=== PATIENT | female | born 1950 | race Caucasian/White ===

== ENCOUNTER 2016-08-02 21:08 | Emergency (ER) | payer OTHER ==
[~2016-08-02] VITALS: Ht 154.9 cm; Wt 59.0 kg
[~2016-08-02 21:08] MED LIST: ALEN35TA23 PO; ASPI-664 PO; ATEN-51 PO; CALC1TAB PO; HYDR25TA6 PO; LATA2.5D2 BOTH EYES; MELO-216 PO; OMEP20CA16 PO; [UNRECOGNIZED DRUG - CODE] PO
[2016-08-02 21:37] VITALS: Ht 154.9 cm; Wt 59.0 kg
--- NOTE | 2016-08-03 00:14 | ERA ---
ER Documentation Chief Complaint Date/Time DATE: 08/03/16 TIME: 00:14 Chief Complaint Hypertension. HPI The patient is a 65-year-old female, presenting to the ER because of left blood pressure at home at 160/103 around 8 PM. She is currently taking atenolol and hydrochlorothiazide. She saw her physician 2 days ago who prescribed her clonidine as needed. She denies headache, syncope, near syncope, neck pain, chest pain, dyspnea, abdominal pain, vomiting, dysuria, diarrhea she does not smoke, drink, has a lot of stress in her life Past medical history: Hypertension, osteoporosis Past surgical history: Cholecystectomy, appendectomy ROS All systems reviewed and are negative except as per history of present illness. Medications Home Meds Active Scripts Omeprazole* (Omeprazole*) 20 Mg Capsule., 20 MG PO DAILY, #30 CAP Prov:BRI PUGH MD 02/17/16 Reported Medications Multivit/Iron/FA/K/Herb No.244 (Alive Women's Energy Mv Tablet) 1 Each Tablet, 1 EACH PO DAILY, TAB 02/15/16 Latanoprost (Latanoprost) 2.5 Ml Drops, 1 DROP BOTH EYES QHS, #1 BOTTLE 02/15/16 Calcium Carbonate/Vitamin D3 (Calcium 600 + Vit D 400 Tablet) 1 Each Tablet, 2 EACH PO BID, TAB 02/15/16 Alendronate Sodium* (Alendronate Sodium*) 35 Mg Tablet, 35 MG PO Q7D, #4 TAB 02/15/16 Meloxicam (Mobic) 7.5 Mg Tablet, 7.5 MG PO DAILY, #30 TAB 02/15/16 Aspirin (Aspirin) 81 Mg Tablet., 81 MG PO DAILY 07/17/13 Hydrochlorothiazide (Hydrochlorothiazide) 25 Mg Tablet, 25 MG PO DAILY 07/17/13 Atenolol* (Atenolol*) 25 Mg Tablet, 25 MG PO DAILY 07/17/13 Omeprazole* (Omeprazole*) 20 Mg Capsule.dr, 20 MG PO DAILY 07/17/13 Allergies Allergies: Coded Allergies: No Known Allergy (Unverified , 02/15/16) PMhx/Soc History of Surgery: Yes Anesthesia Reaction: No Hx Neurological Disorder: No Hx Respiratory Disorders: No Hx Cardiac Disorders: Yes Hx Psychiatric Problems: No Hx Miscellaneous Medical Probl: No Hx Alcohol Use: No Hx Substance Use: No Hx Tobacco Use: No Physical Exam Vitals Vital Signs Date Time Temp Pulse Resp B/P Pulse Ox O2 Delivery O2 Flow Rate FiO2 08/03/16 01:40 98.1 65 18 140/60 99 Room Air 08/03/16 00:18 97.8 65 18 167/73 98 Room Air 08/02/16 21:37 98.8 72 20 178/74 98 Physical Exam Const: No acute distress. Very anxious Head: Atraumatic. Eyes: Normal Conjunctiva. ENT: Normal External Ears, Nose and Mouth. Neck: Full range of motion. No meningismus. Resp: Clear to auscultation bilaterally. Cardio: Regular rate and rhythm, no murmurs. Abd: Soft, non distended, normal bowel sounds, non tender. Skin: No petechiae or rashes. Back: No midline or flank tenderness. Ext: No cyanosis, or edema. Neur: Awake and alert. No focal deficit Psych: Normal Mood and Affect. Result Diagram: 08/03/16 0025 08/03/16 0025 Results 24 hrs Laboratory Tests Test 08/03/16 00:25 White Blood Count 7.810^3/ul Red Blood Count 4.3310^6/ul Hemoglobin 13.2g/dl Hematocrit 38.2% Mean Corpuscular Volume 88.2fl Mean Corpuscular Hemoglobin 30.5pg Mean Corpuscular Hemoglobin Concent 34.6g/dl Red Cell Distribution Width 13.4% Platelet Count 31645^3/UL Mean Platelet Volume 9.7fl Neutrophils % 48.4% Lymphocytes % 40.5% Monocytes % 7.7% Eosinophils % 2.6% Basophils % 0.5% Nucleated Red Blood Cells % 0.0/100WBC Neutrophils # 3.810^3/ul Lymphocytes # 3.110^3/ul Monocytes # 0.610^3/ul Eosinophils # 0.210^3/ul Basophils # 0.010^3/ul Nucleated Red Blood Cells # 0.010^3/ul Sodium Level 135mmol/L Potassium Level 3.7mmol/L Chloride Level 100mmol/L Carbon Dioxide Level 28mmol/L Anion Gap 11 Blood Urea Nitrogen 26mg/dl Creatinine 0.53mg/dl Glucose Level 110mg/dl Calcium Level 9.4mg/dl Procedures/MDM MEDICAL MAKING DECISION: The patient is a 65-year-old female, presenting to the ER because of acute accelerated hypertension. Her blood pressure improved in the ER without intervention. The differential diagnoses considered include but are not limited to acute distress, acute anxiety attack, acute panic attack, medical noncompliance, inadequate medication Departure Diagnosis: Primary Impression: Hypertension Condition: Good Comments I discussed the findings with the patient. I advised the patient to follow-up with the primary physician in about 1-2 days, sooner if needed and return if any concern. KATIE FUENTES MD Aug 03, 2016 00:14
[2016-08-03 00:45] LABS: ADD SCAN DIFF NO
[2016-08-03 00:48] LABS: BASOPHILS % 0.5 % (0.0-2.0); EOSINOPHILS # 0.2 10^3/ul (0.0-0.5); EOSINOPHILS % 2.6 % (0.0-7.0); HEMATOCRIT 38.2 % (37.0-47.0); HEMOGLOBIN 13.2 g/dl (12.0-16.0); LYMPHOCYTES # 3.1 10^3/ul (0.8-2.9); LYMPHOCYTES % 40.5 % (15.0-51.0); MEAN CORPUSCULAR HEMOGLOBIN 30.5 pg (29.0-33.0); MEAN CORPUSCULAR HGB CONC 34.6 g/dl (32.0-37.0); MEAN CORPUSCULAR VOLUME 88.2 fl (82.0-101.0); MEAN PLATELET VOLUME 9.7 fl (7.4-10.4); MONOCYTE # 0.6 10^3/ul (0.3-0.9); MONOCYTES % 7.7 % (0.0-11.0); NEUTROPHIL # 3.8 10^3/ul (1.6-7.5); NEUTROPHILS % 48.4 % (39.0-77.0); PLATELET COUNT 319 10^3/UL (140-415); RED BLOOD COUNT 4.33 10^6/ul (4.20-5.40); RED CELL DISTRIBUTION WIDTH 13.4 % (11.5-14.5); WHITE BLOOD COUNT 7.8 10^3/ul (4.8-10.8)
[2016-08-03 01:02] LABS: POTASSIUM 3.7 mmol/L (3.5-5.1)
[2016-08-03 01:04] LABS: CREATININE 0.53 mg/dl (0.44-1.00)
[2016-08-03 01:05] LABS: CALCIUM 9.4 mg/dl (8.4-10.2)
[2016-08-03 01:40] VITALS: BP 140/60; PULSE 65; RESP 18; TEMP 98.1
== END 2016-08-03 02:42 | disposition home or self-care (01) ==
LOC: E/R 21:08
DX: I10 Essential (primary) hypertension (principal); Z79.82 Long term (current) use of aspirin
CPT/HCPCS: 80048; 85025; 99283

== ENCOUNTER 2016-08-10 05:57 | Emergency (ER) | payer OTHER ==
[~2016-08-10] VITALS: Ht 154.9 cm; Wt 60.0 kg
[2016-08-10 06:20] VITALS: Ht 154.9 cm; Wt 60.0 kg
[2016-08-10 07:37] LABS: ADD SCAN DIFF NO
[2016-08-10 07:59] LABS: CHLORIDE 102 mmol/L (97-110); INR 0.9; POTASSIUM 4.1 mmol/L (3.5-5.1); PROTIME 12.1 Sec (12.2-14.2); PT RATIO 0.9; SODIUM 140 mmol/L (135-144)
[2016-08-10 08:00] LABS: PARTIAL THROMBOPLASTIN TIME 28.6 Sec (25.0-35.0)
[2016-08-10 08:02] LABS: ANION GAP 17 (8-16); BLOOD UREA NITROGEN 22 mg/dl (7-20); CARBON DIOXIDE 25 mmol/L (21-31); CREATININE 0.49 mg/dl (0.44-1.00); GLUCOSE 103 mg/dl (70-220)
[2016-08-10 08:03] LABS: CALCIUM 9.3 mg/dl (8.4-10.2)
--- NOTE | 2016-08-10 08:12 | RADRPT ---
PROCEDURE: XR Chest. CLINICAL INDICATION: Chest pain. TECHNIQUE: Single frontal portable chest was obtained. COMPARISON: 02/15/2016. FINDINGS: Cardiomediastinal silhouette appears normal There are atherosclerotic calcifications in the thoracic aorta. Pulmonary vasculature appears normal. Lung reyes appear clear. Costophrenic angles are well defined. The osseous elements appear intact. IMPRESSION: 1. Atherosclerotic calcifications in the thoracic aorta. 2. No evidence for active cardiopulmonary disease. RPTAT: [facility] Physician Mimi Date Time Electronically viewed and signed by Walter Dunaway Physician on 08/10/2016 08:12 /
[2016-08-10 08:15] LABS: TROPONIN-I < 0.012 ng/ml (0.00-0.12)
[2016-08-10 08:31] LABS: BASOPHILS % 0.5 % (0.0-2.0); EOSINOPHILS # 0.2 10^3/ul (0.0-0.5); EOSINOPHILS % 2.9 % (0.0-7.0); HEMATOCRIT 37.3 % (37.0-47.0); HEMOGLOBIN 12.6 g/dl (12.0-16.0); LYMPHOCYTES # 2.6 10^3/ul (0.8-2.9); LYMPHOCYTES % 33.9 % (15.0-51.0); MEAN CORPUSCULAR HEMOGLOBIN 30.1 pg (29.0-33.0); MEAN CORPUSCULAR HGB CONC 33.8 g/dl (32.0-37.0); MEAN PLATELET VOLUME 10.2 fl (7.4-10.4); MONOCYTE # 0.5 10^3/ul (0.3-0.9); MONOCYTES % 6.3 % (0.0-11.0); NEUTROPHIL # 4.3 10^3/ul (1.6-7.5); NEUTROPHILS % 56.3 % (39.0-77.0); PLATELET COUNT 289 10^3/UL (140-415); RED BLOOD COUNT 4.19 10^6/ul (4.20-5.40); RED CELL DISTRIBUTION WIDTH 13.5 % (11.5-14.5); WHITE BLOOD COUNT 7.6 10^3/ul (4.8-10.8)
--- NOTE | 2016-08-10 08:45 | ERD ---
ER Documentation Chief Complaint Date/Time DATE: 08/10/16 TIME: 08:41 Chief Complaint HTN, L arm numbness/Pain HPI This is a 65-year-old female who presents to the emergency room for evaluation of high blood pressure. The patient states that she does have a history of high blood pressure and does take blood pressure medications at home. She states that she woke up at 4 AM to take her blood pressure for an unknown reason , and noted that it was high. She states after she is always high she began to become anxious and did note mild chest pain. The patient states that she did have tingling in the left and right upper extremity when she became anxious and she came to the ER for further evaluation. She denies any active chest pain at this time. Her numbness and tingling has resolved. ROS All systems reviewed and are negative except as per history of present illness. Medications Home Meds Active Scripts Omeprazole* (Omeprazole*) 20 Mg Capsule., 20 MG PO DAILY, #30 CAP Prov:BRI PUGH MD 02/17/16 Reported Medications Multivit/Iron/FA/K/Herb No.244 (Alive Women's Energy Mv Tablet) 1 Each Tablet, 1 EACH PO DAILY, TAB 02/15/16 Latanoprost (Latanoprost) 2.5 Ml Drops, 1 DROP BOTH EYES QHS, #1 BOTTLE 02/15/16 Calcium Carbonate/Vitamin D3 (Calcium 600 + Vit D 400 Tablet) 1 Each Tablet, 2 EACH PO BID, TAB 02/15/16 Alendronate Sodium* (Alendronate Sodium*) 35 Mg Tablet, 35 MG PO Q7D, #4 TAB 02/15/16 Meloxicam (Mobic) 7.5 Mg Tablet, 7.5 MG PO DAILY, #30 TAB 02/15/16 Aspirin (Aspirin) 81 Mg Tablet., 81 MG PO DAILY 07/17/13 Hydrochlorothiazide (Hydrochlorothiazide) 25 Mg Tablet, 25 MG PO DAILY 07/17/13 Atenolol* (Atenolol*) 25 Mg Tablet, 25 MG PO DAILY 07/17/13 Omeprazole* (Omeprazole*) 20 Mg Capsule., 20 MG PO DAILY 07/17/13 Allergies Allergies: Coded Allergies: No Known Allergy (Unverified , 02/15/16) PMhx/Soc History of Surgery: Yes (CHOLECYSTECTOMY) Anesthesia Reaction: No Hx Neurological Disorder: No Hx Respiratory Disorders: No Hx Cardiac Disorders: Yes (HTN) Hx Psychiatric Problems: No Hx Miscellaneous Medical Probl: No Hx Alcohol Use: No Hx Substance Use: No Hx Tobacco Use: No Smoking Status: Never smoker Physical Exam Vitals Vital Signs Date Time Temp Pulse Resp B/P Pulse Ox O2 Delivery O2 Flow Rate FiO2 08/10/16 08:15 60 18 129/69 99 Room Air 08/10/16 06:20 97.6 68 20 164/78 100 Physical Exam INITIAL VITAL SIGNS: Reviewed by me GENERAL: The patient is well developed and appropriate for usual state of health in no apparent distress HEENT: Pupils equal, round, and reactive to light. EOMI. There is no scleral icterus. NECK: C-spine is soft and supple, there is no meningismus. There is no cervical lymphadenopathy. LUNGS: Clear to auscultation bilaterally. There are no rales, wheezes or rhonchi. HEART: Regular rate and rhythm, no murmurs, clicks, rubs or gallops. ABDOMEN: Soft, non-tender, non-distended. There are bowel sounds in all four quadrants. No rebound or guarding. EXTREMITIES: There is no peripheral cyanosis or edema. No focal swelling or erythema. NEUROLOGICAL: The patient moves all four extremities with 5/5 strength. Cranial nerves II - XII are intact. Normal gait. Alert and oriented SKIN: There is no apparent rash or petechiae. HEME/LYMPHATIC: There is no evidence of excessive bruising or lymphedema. PSYCHIATRIC: The patient does appear mildly anxious Result Diagram: 08/10/16 0720 08/10/16 0720 Results 24 hrs Laboratory Tests Test 08/10/16 07:20 White Blood Count 7.610^3/ul Red Blood Count 4.1910^6/ul Hemoglobin 12.6g/dl Hematocrit 37.3% Mean Corpuscular Volume 89.0fl Mean Corpuscular Hemoglobin 30.1pg Mean Corpuscular Hemoglobin Concent 33.8g/dl Red Cell Distribution Width 13.5% Platelet Count 94217^3/UL Mean Platelet Volume 10.2fl Neutrophils % 56.3% Lymphocytes % 33.9% Monocytes % 6.3% Eosinophils % 2.9% Basophils % 0.5% Nucleated Red Blood Cells % 0.0/100WBC Neutrophils # 4.310^3/ul Lymphocytes # 2.610^3/ul Monocytes # 0.510^3/ul Eosinophils # 0.210^3/ul Basophils # 0.010^3/ul Nucleated Red Blood Cells # 0.010^3/ul Prothrombin Time 12.1Sec Prothrombin Time Ratio 0.9 INR International Normalized Ratio 0.90 Activated Partial Thromboplast Time 28.6Sec Sodium Level 140mmol/L Potassium Level 4.1mmol/L Chloride Level 102mmol/L Carbon Dioxide Level 25mmol/L Anion Gap 17 Blood Urea Nitrogen 22mg/dl Creatinine 0.49mg/dl Glucose Level 103mg/dl Calcium Level 9.3mg/dl Troponin I < 0.012ng/ml Procedures/MDM EKG: Rate/Rhythm: [Normal Sinus Rhythm] QRS, ST, T-waves: [No changes consistent w/ acute ischemia] Impression: [No evidence of ischemia or arrhythmia] Chest X-ray 1V Interpreted by me: Soft Tissue: No acute abnormalities Bones: No acute abnormalities Mediastinum/Cardiac Silhouette/Lungs: [No acute abnormalities] This 65-year-old female presents to the emergency room for evaluation of hypertension, and mild chest pain which is resolved. The patient was also complaining of left arm and right arm numbness and tingling. When I evaluated this patient she appeared to be mildly anxious. Her blood pressure was slightly elevated with a systolic of 166. This patient did have lab work drawn including a troponin which was normal. Her EKG is nonischemic. Chest x-ray is also clear. This patient does have a stress test done less than a year ago which was essentially normal. When I reevaluated this patient to update her on the lab results she stated that she is feeling much better at this time. Her blood pressure is 133/61. I do feel that her symptoms could be related to anxiety. The patient will be discharged at this time with instructions to follow-up with her primary care physician or return to the ER if her symptoms worsen. Differential diagnoses entertained was broad with potential high acuity. Patient has been evaluated for acute myocardial infarction, unstable angina, aortic dissection, pulmonary embolism, other intrathoracic and cardiac concerns. Ultimately the patient's evaluation is nondiagnostic. Based on the patient's lack of risk factors, as well as the patient's clinical, laboratory, and imaging data, the patient appears to be low risk for these high risk causes of chest pain. Departure Diagnosis: Primary Impression: Hypertension Additional Impressions: Chest pain Paresthesias Condition: Stable LEORA DOMINUGEZ DO Aug 10, 2016 08:45
[2016-08-10 09:01] VITALS: BP 133/76; PULSE 62; RESP 18; TEMP 97.8
== END 2016-08-10 09:02 | disposition home or self-care (01) ==
LOC: E/R 05:57
DX: I10 Essential (primary) hypertension (principal); R40.2252 Coma scale, best verbal response, oriented, at arrival to emergency department; R20.2 Paresthesia of skin; R40.2142 Coma scale, eyes open, spontaneous, at arrival to emergency department; R40.2362 Coma scale, best motor response, obeys commands, at arrival to emergency department; Z79.82 Long term (current) use of aspirin
CPT/HCPCS: 36415; 71010; 80048; 84484; 85025; 85610; 85730; 93005; Z7502

== ENCOUNTER 2017-03-07 10:20 | Observation (INO) | END 2017-03-07 14:53 | disposition home or self-care (01) ==

== ENCOUNTER 2017-03-08 12:03 | Emergency (ER) | payer MEDICARE, OTHER ==
[~2017-03-08] VITALS: Wt 58.8 kg
[~2017-03-08 12:03] MED LIST changes: -ALEN35TA23 PO; -MELO-216 PO
[2017-03-08] MEDS ORDERED: SOD CHLORIDE 0.9% 1,000 ML IV STA (13:59)
[2017-03-08] MEDS ORDERED: ONDANSETRON 4 MG INJ IV STA (13:59)
[2017-03-08] MEDS ORDERED: morphine 4 MG/ML VIAL IV STA (13:59)
--- NOTE | 2017-03-08 15:13 | RADRPT ---
PROCEDURE: CT SCAN OF THE ABDOMEN AND PELVIS NON CONTRAST CLINICAL INDICATION: Abdominal pain, cold sweats TECHNIQUE: Utilizing the multi-slice spiral CT scanner, Transaxial images were obtained through the abdomen and pelvis without contrast. Additional sagittal, coronal, MPR images were also obtained. Radiation Dose: CTDI vol 7.69 mGy, DLP 425.32 mGy-cm. One of more of the following dose reduction techniques were utilized: -automatic exposure control -adjustment of the mA and/or kV according to patient size -Use of iterative reconstruction technique Contrast used: None COMPARISON: None FINDINGS: Limited slices through the lung bases are clear. Descending aorta measures 2.8 cm. Minimal osteophyt ic spurring noted in the lower dorsal spine. Small retrocardiac hiatal hernia noted. CT Abdomen Enlarged fatty liver, normal spleen, nondistended stomach, cholecystectomy clips, normal adrenals, p ancreas is seen. Kidneys do not demonstrate any intra renal stones or hydronephrosis. Dilated small bowel loops noted in the upper abdomen with the no significant mass lesions seen to suggest obstruct gilda etiology. significant diverticula seen in the right colon. No free air or ascites noted. No retr operitoneal adenopathy seen. No fluid collections noted in the lesser sac. CT pelvis : Diverticula also noted in the descending colon. Extensive diverticula noted in the rect osigmoid colon with the no pericolonic fat stranding noted to suggest acute diverticulitis. Uterus w ith calcifications, left adnexal cystic lesion with calcifications are seen, probably ovarian in jay ology. No pelvic ascites noted. Degenerate changes noted in the lumbosacral spine. IMPRESSION: Diverticulosis colon most extensive in the sigmoid colon. No CT evidence of acute diverticulitis not ed. A few dilated small bowel loops noted in the upper abdomen but no transition point seen to suggest o bstructive etiology. RPTAT: [facility] Physician Astrid Date Time Electronically viewed and signed by Physician Astrid on 03/08/2017 15:13 MB/
[2017-03-08] MEDS ORDERED: NAPR-685 PO (19:44)
[2017-03-08] MEDS ORDERED: POLY17PO6 PO (19:44)
--- NOTE | 2017-03-08 19:53 | ERD ---
ER Documentation Chief Complaint Chief Complaint ABD PAIN SINCE YESTERDAY AFTERNOON HPI This 66-year-old presents with abdominal pain that began earlier this afternoon. The pain is mild to moderate, intermittent crampy pain. States that she is sometimes constipated. She does have a history of hypertension hypercholesterolemia. Denies nausea vomiting shortness of breath fever chills and chest pain. She has a remote history of a cholecystectomy and an appendectomy. ROS All systems reviewed and are negative except as per history of present illness. Medications Home Meds Active Scripts Polyethylene Glycol* (Miralax*) 17 Gm Powd.pack, 17 GM PO DAILY for CONSTIPATION , #12 PACKET Prov:EDEN FRANCO DO 03/08/17 Naproxen* (Naproxen*) 375 Mg Tablet, 375 MG PO BID Y for PAIN, #20 TAB Prov:EDEN FRANCO DO 03/08/17 Omeprazole* (Omeprazole*) 20 Mg Capsule., 20 MG PO DAILY, #30 CAP Prov:BRI PUGH MD 02/17/16 Reported Medications Multivit/Iron/FA/K/Herb No.244 (Alive Women's Energy Mv Tablet) 1 Each Tablet, 1 EACH PO DAILY, TAB 02/15/16 Latanoprost (Latanoprost) 2.5 Ml Drops, 1 DROP BOTH EYES QHS, #1 BOTTLE 02/15/16 Calcium Carbonate/Vitamin D3 (Calcium 600 + Vit D 400 Tablet) 1 Each Tablet, 2 EACH PO BID, TAB 02/15/16 Aspirin (Aspirin) 81 Mg Tablet., 81 MG PO DAILY 07/17/13 Hydrochlorothiazide (Hydrochlorothiazide) 25 Mg Tablet, 25 MG PO DAILY 07/17/13 Atenolol* (Atenolol*) 25 Mg Tablet, 25 MG PO DAILY 07/17/13 Omeprazole* (Omeprazole*) 20 Mg Capsule., 20 MG PO DAILY 07/17/13 Discontinued Reported Medications Alendronate Sodium* (Alendronate Sodium*) 35 Mg Tablet, 35 MG PO Q7D, #4 TAB 02/15/16 Meloxicam (Mobic) 7.5 Mg Tablet, 7.5 MG PO DAILY, #30 TAB 02/15/16 Allergies Allergies: Coded Allergies: No Known Allergy (Unverified , 03/08/17) PMhx/Soc History of Surgery: Yes (JUNE AND APPY) Anesthesia Reaction: No Hx Neurological Disorder: No Hx Respiratory Disorders: No Hx Cardiac Disorders: Yes (HTN) Hx Psychiatric Problems: No Hx Miscellaneous Medical Probl: No Hx Alcohol Use: No Hx Substance Use: No Hx Tobacco Use: No Smoking Status: Never smoker Physical Exam Vitals Vital Signs Date Time Temp Pulse Resp B/P Pulse Ox O2 Delivery O2 Flow Rate FiO2 03/08/17 18:00 98.0 61 18 151/70 99 Room Air 03/08/17 15:54 97.9 69 18 144/65 98 Room Air 03/08/17 14:00 98.0 64 18 131/60 98 Room Air 03/08/17 12:06 98.0 78 18 108/58 99 Physical Exam Const: [] No distress Head: Atraumatic Eyes: Normal Conjunctiva ENT: Normal External Ears, Nose and Mouth. Neck: Full range of motion..~ No meningismus. Resp: Clear to auscultation bilaterally Cardio: Regular rate and rhythm, no murmurs Abd: Soft, non tender, non distended. Normal bowel sounds Skin: No petechiae or rashes Back: No midline or flank tenderness Ext: No cyanosis, or edema Neur: Awake and alert 3, no focal deficits Psych: Normal Mood and Affect Result Diagram: 03/08/17 1433 03/08/17 1433 Results 24 hrs Laboratory Tests Test 03/08/17 14:30 03/08/17 14:32 03/08/17 14:33 Urine Color YELLOW Urine Clarity CLEAR Urine pH 5.0 Urine Specific [place] 1.030 Urine Ketones NEGATIVEmg/dL Urine Nitrite NEGATIVEmg/dL Urine Bilirubin NEGATIVEmg/dL Urine Urobilinogen NEGATIVEmg/dL Urine Leukocyte Esterase NEGATIVELeu/ul Urine Hemoglobin NEGATIVEmg/dL Urine Glucose NEGATIVEmg/dL Urine Total Protein NEGATIVEmg/dl Lactic Acid Level 1.7mmol/L White Blood Count 10.810^3/ul Red Blood Count 4.3910^6/ul Hemoglobin 12.9g/dl Hematocrit 39.1% Mean Corpuscular Volume 89.1fl Mean Corpuscular Hemoglobin 29.4pg Mean Corpuscular Hemoglobin Concent 33.0g/dl Red Cell Distribution Width 13.8% Platelet Count 12749^3/UL Mean Platelet Volume 9.5fl Neutrophils % 82.3% Lymphocytes % 13.4% Monocytes % 3.6% Eosinophils % 0.2% Basophils % 0.2% Nucleated Red Blood Cells % 0.0/100WBC Neutrophils # 8.910^3/ul Lymphocytes # 1.510^3/ul Monocytes # 0.410^3/ul Eosinophils # 0.010^3/ul Basophils # 0.010^3/ul Nucleated Red Blood Cells # 0.010^3/ul Sodium Level 141mmol/L Potassium Level 4.3mmol/L Chloride Level 102mmol/L Carbon Dioxide Level 29mmol/L Anion Gap 14 Blood Urea Nitrogen 24mg/dl Creatinine 0.60mg/dl Glucose Level 106mg/dl Calcium Level 8.6mg/dl Total Bilirubin 0.7mg/dl Direct Bilirubin 0.00mg/dl Indirect Bilirubin 0.7mg/dl Aspartate Amino Transf (AST/SGOT) 33IU/L Alanine Aminotransferase (ALT/SGPT) 40IU/L Alkaline Phosphatase 108IU/L Troponin I < 0.012ng/ml Total Protein 8.0g/dl Albumin 4.3g/dl Globulin 3.70g/dl Albumin/Globulin Ratio 1.16 Lipase 72U/L Current Medications Medications (Trade) Dose Ordered Sig/[place] Route PRN Reason Start Time Stop Time Status Last Admin Dose Admin Sodium Chloride (NS) 1,000 ml @ 1,000 mls/hr Q1H STAT IV 03/08/17 13:59 03/08/17 14:58 DC 03/08/17 14:37 Morphine Sulfate (morphine) 4 mg ONCE STAT IV 03/08/17 13:59 03/08/17 14:01 DC Ondansetron HCl (Zofran Inj) 4 mg ONCE STAT IV 03/08/17 13:59 03/08/17 14:01 DC Procedures/MDM 66-year-old female with abdominal pain and nonspecific findings on imaging. No signs of acute infection. No signs of obstruction or surgical emergency currently. Patient was given 4 mg of morphine with Zofran. She is also given a liter of IV fluid. This helped with her pain. No obvious evidence of constipation on CAT scan of her patient says she is constipated from time to time. Workup with EKG and troponin were also performed and were negative for any acute ischemia. Going to discharge her with MiraLAX as well as naproxen and strict return precautions to the ER for any concerning changes. CT abdomen pelvis interpretation: See no acute process, see no obstruction, no free air, no abnormal fat stranding, no fractures EKG interpretation: Normal sinus rhythm rate of 61, left axis deviation, no ST or T-wave changes concerning for acute ischemia. Abnormal EKG Departure Diagnosis: Primary Impression: Abdominal pain Condition: Stable Patient Instructions: Abdominal Pain Referrals: DEISY MOSS MD (PCP) Additional Instructions: Call your primary care doctor TOMORROW for an appointment during the next 1-2 days.See the doctor sooner or return here if your condition worsens before your appointment time. EDEN FRANCO DO Mar 08, 2017 19:53
[2017-03-08 20:08] VITALS: BP 146/72; PULSE 71; RESP 19; TEMP 98
== END 2017-03-08 20:08 | disposition home or self-care (01) ==
LOC: E/R 12:03
DX: R10.9 Unspecified abdominal pain (principal); I10 Essential (primary) hypertension; Z79.82 Long term (current) use of aspirin
CPT/HCPCS: 36415; 74176; 80053; 81003; 83605; 83690; 84484; 85025; 93005; 99285; J7030; J2270; J2405

== ENCOUNTER 2017-06-25 05:48 | Observation (INO) | END 2017-06-25 16:45 | disposition home or self-care (01) ==

== ENCOUNTER → 2017-11-28 | Outpatient (CLI) | END | disposition home or self-care (01) ==

== ENCOUNTER 2018-08-24 23:56 | Inpatient (IN) | payer MEDICARE, OTHER ==
[~2018-08-24] VITALS: Ht 154.9 cm; Wt 63.4 kg
[~2018-08-24 23:56] MED LIST changes: +ASPI-1044 PO; -ASPI-664 PO; +CALC-834 PO; -CALC1TAB PO; +NAPR-685 PO; -OMEP20CA16 PO; +POLY17PO6 PO
[2018-08-25] MEDS ORDERED: SOD CHLORIDE 0.9% 500 ML IV STA (02:10)
[2018-08-25] MEDS ORDERED: ONDANSETRON 4 MG INJ IV STA (02:10)
[2018-08-25] MEDS ORDERED: morphine 4 MG/ML VIAL IV STA (02:10)
[2018-08-25] MEDS ORDERED: DIPHENHYDRAMINE 50 MG INJ IV ONE (02:30)
[2018-08-25] MEDS ORDERED: CLINDAMYCIN 600 MG/D5W (PMX) 50 ML IVPB SCH (04:00)
--- NOTE | 2018-08-25 04:43 | ERD ---
ER Documentation Chief Complaint Chief Complaint left foot pain/swelling x 4 days. s/p surgery HPI This 59-year-old female status post bunion surgery a few weeks ago. She had a few of the pins removed but now complains of erythema induration and pain. No fevers no chills. No nausea no vomiting. No other current complaint ROS All systems reviewed and are negative except as per history of present illness. Medications Home Meds Active Scripts Polyethylene Glycol* (Miralax*) 17 Gm Powd.pack, 17 GM PO DAILY for CONSTIPATION, #12 PACKET Prov:EDEN FRANCO DO 03/08/17 Naproxen* (Naproxen*) 375 Mg Tablet, 375 MG PO BID PRN for PAIN, #20 TAB Prov:EDEN FRANCO DO 03/08/17 Reported Medications Multivit/Iron/FA/K/Herb No.244 (Alive Women's Energy Mv Tablet) 1 Each Tablet, 1 EACH PO DAILY, TAB 02/15/16 Latanoprost (Latanoprost) 2.5 Ml Drops, 1 DROP BOTH EYES QHS, #1 BOTTLE 02/15/16 Calcium Carbonate/Vitamin D3 (Calcium 600 + Vit D 400 Tablet) 1 Each Tablet, 2 EACH PO BID, TAB 02/15/16 Aspirin Delayed Release (Aspirin Delayed Release) 81 Mg Tablet.dr, 81 MG PO DAILY 07/17/13 Hydrochlorothiazide (Hydrochlorothiazide) 25 Mg Tablet, 25 MG PO DAILY 07/17/13 Atenolol* (Atenolol*) 25 Mg Tablet, 25 MG PO DAILY 07/17/13 Allergies Allergies: Coded Allergies: Penicillins (Verified Allergy, Intermediate, total body redness/hives, 08/25/18) unsure which med caused reaction; given PCN, amocicillin, hydrocodone, Keflex at same time for dental procedure; reaction 1 day later cephalexin (Verified Allergy, Unknown, 08/25/18) unsure which med caused reaction; given PCN, amocicillin, hydrocodone, Keflex at same time for dental procedure; reaction 1 day later hydrocodone (Verified Allergy, Unknown, 08/25/18) unsure which med caused reaction; given PCN, amocicillin, hydrocodone, Keflex at same time for dental procedure; reaction 1 day later PMhx/Soc History of Surgery: Yes (pato/appy removed) Anesthesia Reaction: No Hx Neurological Disorder: No Hx Respiratory Disorders: No Hx Cardiac Disorders: Yes (HTN) Hx Psychiatric Problems: No Hx Miscellaneous Medical Probl: No Hx Alcohol Use: Yes (socially) Hx Substance Use: No Hx Tobacco Use: No Smoking Status: Current every day smoker Physical Exam Vitals Vital Signs Date Temp Pulse Resp B/P (MAP) Pulse Ox O2 O2 Flow FiO2 Time Delivery Rate 08/25/18 98.5 75 19 134/79 98 Room Air 02:07 (97) 08/25/18 98.5 89 18 144/66 98 00:10 (92) Physical Exam Const: No acute distress Head: Atraumatic Eyes: Normal Conjunctiva ENT: Normal External Ears, Nose and Mouth. Neck: Full range of motion. No meningismus. Resp: Clear to auscultation bilaterally Cardio: Regular rate and rhythm, no murmurs Abd: Soft, non tender, non distended. Normal bowel sounds Skin: Erythema and induration noted over the left foot. Back: No midline or flank tenderness Ext: No cyanosis, or edema Neur: Awake and alert Psych: Normal Mood and Affect Result Diagram: 08/25/1822308/25/18223 Results 24 hrs Laboratory Tests Test 08/25/18 02:24 White Blood Count 11.8 10^3/ul Red Blood Count 4.18 10^6/ul Hemoglobin 12.0 g/dl Hematocrit 36.2 % Mean Corpuscular Volume 86.6 fl Mean Corpuscular Hemoglobin 28.7 pg Mean Corpuscular Hemoglobin Concent 33.1 g/dl Red Cell Distribution Width 14.6 % Platelet Count 319 10^3/UL Mean Platelet Volume 9.6 fl Immature Granulocytes % 0.300 % Neutrophils % 59.9 % Lymphocytes % 29.6 % Monocytes % 6.9 % Eosinophils % 3.0 % Basophils % 0.3 % Nucleated Red Blood Cells % 0.0 /100WBC Immature Granulocytes # 0.040 10^3/ul Neutrophils # 7.1 10^3/ul Lymphocytes # 3.5 10^3/ul Monocytes # 0.8 10^3/ul Eosinophils # 0.4 10^3/ul Basophils # 0.0 10^3/ul Nucleated Red Blood Cells # 0.0 10^3/ul Prothrombin Time 12.3 Sec Prothrombin Time Ratio 1.0 INR International Normalized Ratio 0.90 Activated Partial Thromboplast Time 31.6 Sec Urine Color YELLOW Urine Clarity SLIGHTLY CLOUDY Urine pH 5.0 Urine Specific [place] 1.021 Urine Ketones TRACE mg/dL Urine Nitrite NEGATIVE mg/dL Urine Bilirubin NEGATIVE mg/dL Urine Urobilinogen 1+ mg/dL Urine Leukocyte Esterase TRACE Bryan/ul Urine Microscopic RBC 3 /HPF Urine Microscopic WBC 9 /HPF Urine Squamous Epithelial Cells FEW /HPF Urine Bacteria FEW /HPF Urine Mucus FEW /HPF Urine Hemoglobin 1+ mg/dL Urine Glucose NEGATIVE mg/dL Urine Total Protein NEGATIVE mg/dl Sodium Level 142 mmol/L Potassium Level 3.7 mmol/L Chloride Level 104 mmol/L Carbon Dioxide Level 27 mmol/L Anion Gap 11 Blood Urea Nitrogen 17 mg/dl Creatinine 0.51 mg/dl Est Glomerular Filtrat Rate mL/min > 60 mL/min Glucose Level 119 mg/dl Calcium Level 9.7 mg/dl Total Bilirubin 0.5 mg/dl Direct Bilirubin 0.00 mg/dl Indirect Bilirubin 0.5 mg/dl Aspartate Amino Transf (AST/SGOT) 29 IU/L Alanine Aminotransferase (ALT/SGPT) 24 IU/L Alkaline Phosphatase 130 IU/L Total Protein 8.5 g/dl Albumin 4.3 g/dl Globulin 4.20 g/dl Albumin/Globulin Ratio 1.02 Lipase 75 U/L Current Medications Medications Dose Sig/[place] Start Time Status Last (Trade) Ordered Route PRN Stop Time Admin Dose Reason Admin Sodium 500 ml @ Q1H STAT 08/25/18 DC 08/25/18 Chloride 500 mls/hr IV 02:10 02:56 08/25/18 03:09 Morphine 4 mg ONCE STAT 08/25/18 DC 08/25/18 Sulfate IV 02:10 02:57 (morphine) 08/25/18 02:11 Ondansetron 4 mg ONCE STAT 08/25/18 DC 08/25/18 HCl (Zofran IV 02:10 02:56 Inj) 08/25/18 02:11 25 mg ONCE ONCE 08/25/18 DC 08/25/18 Diphenhydrami IV 02:30 02:56 ne HCl 08/25/18 02:31 (Benadryl) Clindamycin 50 ml @ 50 ONCE IVPB 08/25/18 08/25/18 HCl/ mls/hr 04:00 04:31 Dextrose 08/25/18 04:59 Atenolol 25 mg DAILY PO 08/25/18 (Tenormin) 09:00 25 mg DAILY PO 08/25/18 Hydrochloroth 09:00 iazide (Hydrochlorot hiazide) Latanoprost 1 drop QHS BOTH 08/25/18 (Xalatan) EYES 21:00 17 gm DAILY PO 08/25/18 Polyethylene 09:00 Glycol (Miralax) 1 tab BID PO 08/25/18 Calcium/Vitam 09:00 in D (Oyster Shell/ Vit-D (500/200)) 1 tab DAILY PO 08/25/18 Multivitamins 09:00 / Minerals (Theragran-M) Procedures/MDM Medical decision making: Patient has what looks to be a postop cellulitis. Patient will need to be admitted for intravenous antibiotics. Dr. Linn made aware. Departure Diagnosis: Primary Impression: Cellulitis Site of cellulitis: unspecified site Qualified Codes: L03.90 - Cellulitis, unspecified Condition: Serious JIGNESH SANTANA Aug 25, 2018 04:43
[2018-08-25 05:39] VITALS: Ht 154.9 cm; Wt 63.4 kg
[2018-08-25 06:04] VITALS: BP 137/63; PULSE 72; RESP 18
--- NOTE | 2018-08-25 06:24 | HP ---
Date/Time of Note Date/Time of Note DATE: 08/25/18 TIME: 06:19 Assessment/Plan VTE Prophylaxis SCD applied (from Nsg): Yes Pharmacological prophylaxis: NA/contraindicated Pharm contraindication: low risk/ambulating Lines/Catheters IV Catheter Type (from Nrsg): Saline Lock Assessment/Plan Hospital Course This is a 67-year-old female being admitted to the [facility] floor for: #1 left lower extremity cellulitis: We will start the patient on vancomycin and aztreonam, as patient reports possible allergy to penicillin. Will obtain x- rays of the foot to further evaluate. Will check ESR and CRP. Patient does have mild elevation in her white blood cell count of 11,800. Will consult podiatry . Pain control. #2 hypertension: Continue HCTZ, atenolol #3 DVT GI prophylaxis: SCD to the right lower extremity, no GI prophylaxis indicated Further treatment strategy will be implemented as per clinical course Result Diagram: 08/25/184 08/25/18 0224 Results 24hrs Laboratory Tests Test 08/25/18 02:24 White Blood Count 11.8 #H Red Blood Count 4.18 L Hemoglobin 12.0 Hematocrit 36.2 L Mean Corpuscular Volume 86.6 Mean Corpuscular Hemoglobin 28.7 L Mean Corpuscular Hemoglobin Concent 33.1 Red Cell Distribution Width 14.6 H Platelet Count 319 Mean Platelet Volume 9.6 Immature Granulocytes % 0.300 Neutrophils % 59.9 Lymphocytes % 29.6 Monocytes % 6.9 Eosinophils % 3.0 Basophils % 0.3 Nucleated Red Blood Cells % 0.0 Immature Granulocytes # 0.040 H Neutrophils # 7.1 Lymphocytes # 3.5 H Monocytes # 0.8 Eosinophils # 0.4 Basophils # 0.0 Nucleated Red Blood Cells # 0.0 Prothrombin Time 12.3 Prothrombin Time Ratio 1.0 INR International Normalized Ratio 0.90 Activated Partial Thromboplast Time 31.6 Urine Color YELLOW Urine Clarity SLIGHTLY CLOUDY A Urine pH 5.0 Urine Specific [place] 1.021 Urine Ketones TRACE A Urine Nitrite NEGATIVE Urine Bilirubin NEGATIVE Urine Urobilinogen 1+ H Urine Leukocyte Esterase TRACE A Urine Microscopic RBC 3 Urine Microscopic WBC 9 H Urine Squamous Epithelial Cells FEW Urine Bacteria FEW A Urine Mucus FEW A Urine Hemoglobin 1+ H Urine Glucose NEGATIVE Urine Total Protein NEGATIVE Sodium Level 142 Potassium Level 3.7 Chloride Level 104 Carbon Dioxide Level 27 Anion Gap 11 Blood Urea Nitrogen 17 Creatinine 0.51 Est Glomerular Filtrat Rate mL/min > 60 Glucose Level 119 Calcium Level 9.7 Total Bilirubin 0.5 Direct Bilirubin 0.00 Indirect Bilirubin 0.5 Aspartate Amino Transf (AST/SGOT) 29 Alanine Aminotransferase (ALT/SGPT) 24 Alkaline Phosphatase 130 H C-Reactive Protein 20.5 H Total Protein 8.5 H Albumin 4.3 Globulin 4.20 H Albumin/Globulin Ratio 1.02 Lipase 75 HPI/ROS Admit Date/Time Admit Date/Time Aug 25, 2018 at 04:00 Hx of Present Illness Chief complaint: Left foot pain, redness This is a 67-year-old female with a past medical history of bunion surgery redness of her foot and pain in her fourth digit. Patient reports that she had surgery at [facility] on June 23 for bilateral bunion surgery/foot surgery. She states that she had pins placed in there. Some of the pins have been removed but some still exist. She states that she was scheduled for surgery at [facility] on . Due to the fact that she started exp eriencing swelling and redness of her left lateral foot and pain in her fourth digit of the left foot she came in for evaluation. Her vending machine technician is Dr. Rey. He denies any fevers. Allergies: Penicillin, cephalexin, hydrocodone (she took all of these and developed a rash but is unsure which one was the culprit as she took them together) Medications: See Jul Const: Negative for fever, chills, weight gain or weight loss, fatigue, or diaphoresis Eyes : No pain discharge or redness or change in visual acuity ENT: No pain, sore throat, congestion, congestion, dysphagia or discharge Respiratory: No shortness of breath, cough, sputum, wheezing, or pleuritic pain Cardiovascular: No chest pain, palpitation, PND, or edema GI : no change in appetite, abdominal pain, nausea, vomiting, diarrhea, constipation, or change in the color his stool Genitourinary: No dysuria, hematuria, flank pain , discharge or CVA tenderness Musculoskeletal: No joint pain, back pain, neck pain, restricted range of motion in neck or joints Skin: No rash, bruising or hives Neuro: No headache, dizziness, syncope, seizure, focal weakness Endocrine: No polyuria, polydipsia, temperature intolerance Psych: No hallucination, depression, anxiety or suicidal ideation PMH/Family/Social Past Medical History Hypertension Medications Current Medications Atenolol (Tenormin) 25 mg DAILY PO ; Start 08/25/18 at 09:00 Hydrochlorothiazide (Hydrochlorothiazide) 25 mg DAILY PO ; Start 08/25/18 at 09:00 Latanoprost (Xalatan) 1 drop QHS BOTH EYES ; Start 08/25/18 at 21:00 Polyethylene Glycol (Miralax) 17 gm DAILY PO ; Start 08/25/18 at 09:00 Calcium/Vitamin D (Oyster Shell/ Vit-D (500/200)) 1 tab BID PO ; Start 08/25/18 at 09:00 Multivitamins/ Minerals (Theragran-M) 1 tab DAILY PO ; Start 08/25/18 at 09:00 Coded Allergies: Penicillins (Verified Allergy, Intermediate, total body redness/hives, 08/25/18) unsure which med caused reaction; given PCN, amocicillin, hydrocodone, Keflex at same time for dental procedure; reaction 1 day later cephalexin (Verified Allergy, Unknown, 08/25/18) unsure which med caused reaction; given PCN, amocicillin, hydrocodone, Keflex at same time for dental procedure; reaction 1 day later hydrocodone (Verified Allergy, Unknown, 08/25/18) unsure which med caused reaction; given PCN, amocicillin, hydrocodone, Keflex at same time for dental procedure; reaction 1 day later Past Surgical History Cholecystectomy, right foot bunion surgery, left foot bunion surgery, second third and fourth digit surgery Family History Significant Family History: no pertinent family hx Social History Alcohol Use: none Smoking Status: Never smoker Drug Use: none Exam/Review of Systems Vital Signs Vitals Vital Signs Date Temp Pulse Resp B/P (MAP) Pulse Ox O2 O2 Flow FiO2 Time Delivery Rate 08/25/18 98.3 72 18 137/63 98 Room Air 06:04 (87) Exam Exam General: Patient is currently lying in bed in no acute distress HEENT: Atraumatic, normocephalic. The pupils are equal, round and reactive. Extraocular motor are intact Neck: Supple with full range of motion. No rigidity or meningismus Chest: Nontender Lungs: Clear to auscultation bilaterally no crackles rales or wheezing Heart: Normal S1-S2, Regular rhythm and rate. No murmur, S3, or S4 Abdomen: Soft , nontender, nondistended , bowel sounds are present. No guarding no rebound tenderness , No masses or organomegaly. No costovertebral temporal angle mass Extremities: Left foot swelling and redness of the lateral aspect Skin: Left foot swelling on the lateral aspect and erythema. Left fourth digit tenderness to palpation suture in place, second and third digit currently surgically wrapped. Neurologic: Normal mental status, speech normal, cranial nerves II through XII are intact, motor and sensory are intact, MALLIKA BERNSTEIN Aug 25, 2018 06:24
[2018-08-25] MEDS ORDERED: ACETAMINOPHEN 325 MG TAB PO PRN (06:30)
[2018-08-25] MEDS ORDERED: BISACODYL (EC) 5 MG TAB PO PRN (06:30)
[2018-08-25] MEDS ORDERED: OXYCODONE/ACETAMINOPHEN (5/325) TAB PO PRN (06:30)
[2018-08-25] MEDS ORDERED: NACL 0.9% 3 ML SYG IV SCH (06:30)
[2018-08-25] MEDS ORDERED: DOCUSATE SODIUM 100 MG CAP PO PRN (06:30)
[2018-08-25] MEDS ORDERED: ONDANSETRON 4 MG INJ IV PRN (06:30)
[2018-08-25] MEDS ORDERED: VANCOMYCIN IV PER PHARMACY XX SCH (06:30)
[2018-08-25 07:21] VITALS: BP 142/66; PULSE 72; RESP 16
[2018-08-25] MEDS ORDERED: AZTREONAM 1 GM/NS (PMX) 50 ML IVPB SCH (09:00)
[2018-08-25] MEDS ORDERED: HYDROCHLOROTHIAZIDE 25 MG TAB PO SCH (09:00)
[2018-08-25] MEDS ORDERED: CALCIUM/VITAMIN D (500/200) TAB PO SCH (09:00)
[2018-08-25] MEDS ORDERED: MULTIVITAMINS/MINERALS TAB PO SCH (09:00)
[2018-08-25] MEDS ORDERED: ATENOLOL 25 MG TAB PO SCH (09:00)
[2018-08-25] MEDS ORDERED: POLYETHYLENE GLYCOL 17 GM PACKET PO SCH (09:00)
[2018-08-25] MEDS ORDERED: VANCOMYCIN HCL 1.25 GM in SOD CHLORIDE 0.9% 250 ML IVPB SCH (09:00)
[2018-08-25 13:54] VITALS: BP 145/62; PULSE 64; RESP 16
--- NOTE | 2018-08-25 14:16 | PN ---
Date/Time of Note Date/Time of Note DATE: 08/25/18 TIME: 14:13 Assessment/Plan VTE Prophylaxis Risk score (from Ns)>0 risk: 5 SCD applied (from [facility]): Yes SCD contraindicated: low risk/ambulating Pharmacological prophylaxis: NA/contraindicated, LMWH Pharm contraindication: low risk/ambulating Lines/Catheters IV [facility]from [facility] Saline Lock Urinary Cath still in place: No Assessment/Plan Hospital Course A/P 1. Lt foot cellulitis, stable continue antibiotics. 2. Lt foot bunion surgery still wh hardware, stable consulted podiatry. 3. Glaucoma 4. Hypertension S: feels better less erythema. No fever or toxicity. O: Vss PE No pallor Regular Clear Benign Left foot with mild erythema, hardware noted Result Diagram: 08/25/1822308/25/18223 Results 24hrs Laboratory Tests Test 08/25/18 02:24 White Blood Count 11.8 #H Red Blood Count 4.18 L Hemoglobin 12.0 Hematocrit 36.2 L Mean Corpuscular Volume 86.6 Mean Corpuscular Hemoglobin 28.7 L Mean Corpuscular Hemoglobin Concent 33.1 Red Cell Distribution Width 14.6 H Platelet Count 319 Mean Platelet Volume 9.6 Immature Granulocytes % 0.300 Neutrophils % 59.9 Lymphocytes % 29.6 Monocytes % 6.9 Eosinophils % 3.0 Basophils % 0.3 Nucleated Red Blood Cells % 0.0 Immature Granulocytes # 0.040 H Neutrophils # 7.1 Lymphocytes # 3.5 H Monocytes # 0.8 Eosinophils # 0.4 Basophils # 0.0 Nucleated Red Blood Cells # 0.0 Erythrocyte Sedimentation Rate 54 H Prothrombin Time 12.3 Prothrombin Time Ratio 1.0 INR International Normalized Ratio 0.90 Activated Partial Thromboplast Time 31.6 Urine Color YELLOW Urine Clarity SLIGHTLY CLOUDY A Urine pH 5.0 Urine Specific [place] 1.021 Urine Ketones TRACE A Urine Nitrite NEGATIVE Urine Bilirubin NEGATIVE Urine Urobilinogen 1+ H Urine Leukocyte Esterase TRACE A Urine Microscopic RBC 3 Urine Microscopic WBC 9 H Urine Squamous Epithelial Cells FEW Urine Bacteria FEW A Urine Mucus FEW A Urine Hemoglobin 1+ H Urine Glucose NEGATIVE Urine Total Protein NEGATIVE Sodium Level 142 Potassium Level 3.7 Chloride Level 104 Carbon Dioxide Level 27 Anion Gap 11 Blood Urea Nitrogen 17 Creatinine 0.51 Est Glomerular Filtrat Rate mL/min > 60 Glucose Level 119 Calcium Level 9.7 Total Bilirubin 0.5 Direct Bilirubin 0.00 Indirect Bilirubin 0.5 Aspartate Amino Transf (AST/SGOT) 29 Alanine Aminotransferase (ALT/SGPT) 24 Alkaline Phosphatase 130 H C-Reactive Protein 20.5 H Total Protein 8.5 H Albumin 4.3 Globulin 4.20 H Albumin/Globulin Ratio 1.02 Lipase 75 Exam/Review of Systems Exam Vitals Vital Signs Date Temp Pulse Resp B/P (MAP) Pulse Ox O2 O2 Flow FiO2 Time Delivery Rate 08/25/18 98.5 64 16 145/62 99 13:54 (89) 08/25/18 Room Air 06:04 Results Results 24hrs Laboratory Tests Test 08/25/18 02:24 White Blood Count 11.8 #H Red Blood Count 4.18 L Hemoglobin 12.0 Hematocrit 36.2 L Mean Corpuscular Volume 86.6 Mean Corpuscular Hemoglobin 28.7 L Mean Corpuscular Hemoglobin Concent 33.1 Red Cell Distribution Width 14.6 H Platelet Count 319 Mean Platelet Volume 9.6 Immature Granulocytes % 0.300 Neutrophils % 59.9 Lymphocytes % 29.6 Monocytes % 6.9 Eosinophils % 3.0 Basophils % 0.3 Nucleated Red Blood Cells % 0.0 Immature Granulocytes # 0.040 H Neutrophils # 7.1 Lymphocytes # 3.5 H Monocytes # 0.8 Eosinophils # 0.4 Basophils # 0.0 Nucleated Red Blood Cells # 0.0 Erythrocyte Sedimentation Rate 54 H Prothrombin Time 12.3 Prothrombin Time Ratio 1.0 INR International Normalized Ratio 0.90 Activated Partial Thromboplast Time 31.6 Urine Color YELLOW Urine Clarity SLIGHTLY CLOUDY A Urine pH 5.0 Urine Specific [place] 1.021 Urine Ketones TRACE A Urine Nitrite NEGATIVE Urine Bilirubin NEGATIVE Urine Urobilinogen 1+ H Urine Leukocyte Esterase TRACE A Urine Microscopic RBC 3 Urine Microscopic WBC 9 H Urine Squamous Epithelial Cells FEW Urine Bacteria FEW A Urine Mucus FEW A Urine Hemoglobin 1+ H Urine Glucose NEGATIVE Urine Total Protein NEGATIVE Sodium Level 142 Potassium Level 3.7 Chloride Level 104 Carbon Dioxide Level 27 Anion Gap 11 Blood Urea Nitrogen 17 Creatinine 0.51 Est Glomerular Filtrat Rate mL/min > 60 Glucose Level 119 Calcium Level 9.7 Total Bilirubin 0.5 Direct Bilirubin 0.00 Indirect Bilirubin 0.5 Aspartate Amino Transf (AST/SGOT) 29 Alanine Aminotransferase (ALT/SGPT) 24 Alkaline Phosphatase 130 H C-Reactive Protein 20.5 H Total Protein 8.5 H Albumin 4.3 Globulin 4.20 H Albumin/Globulin Ratio 1.02 Lipase 75 Medications Medication Current Medications Atenolol (Tenormin) 25 mg DAILY PO Last administered on 08/25/18at 08:38; Admin Dose 25 MG; Start 08/25/18 at 09:00 Latanoprost (Xalatan) 1 drop QHS BOTH EYES ; Start 08/25/18 at 21:00 Polyethylene Glycol (Miralax) 17 gm DAILY PO ; Start 08/25/18 at 09:00 Calcium/Vitamin D (Oyster Shell/ Vit-D (500/200)) 1 tab BID PO Last administered on 08/25/18at 08:38; Admin Dose 1 TAB; Start 08/25/18 at 09:00 Multivitamins/ Minerals (Theragran-M) 1 tab DAILY PO Last administered on 08/25/18at 08:38; Admin Dose 1 TAB; Start 08/25/18 at 09:00 IV Flush (NS 3 ml) 3 ml PER PROTOCOL IV ; Start 08/25/18 at 06:30 Ondansetron HCl (Zofran Inj) 4 mg Q6H PRN IV NAUSEA/VOMITING; Start 08/25/18 at 06:30 Acetaminophen (Tylenol Tab) 650 mg Q6H PRN PO .PAIN 1-3 OR TEMP Last administered on 08/25/18at 07:56; Admin Dose 650 MG; Start 08/25/18 at 06:30 Oxycodone/ Acetaminophen (Percocet (5/ 325)) 1 tab Q6H PRN PO .MOD PAIN 4-6; Start 08/25/18 at 06:30 Docusate Sodium (Colace) 100 mg Q12H PRN PO .CONSTIPATION; Start 08/25/18 at 06:30 Bisacodyl (Dulcolax) 5 mg DAILY PRN PO .CONSTIPATION; Start 08/25/18 at 06:30 Vancomycin HCl (Vanco Iv Per Pharmacy) VANCOMYCIN PER PHARMACY PER PROTOCOL XX ; Start 08/25/18 at 06:30 Aztreonam 50 ml @ 100 mls/hr Q12 IVPB Last administered on 08/25/18at 09:28; Admin Dose 100 MLS/HR; Start 08/25/18 at 09:00 Vancomycin HCl 250 ml @ 125 mls/hr Q12H IVPB ; Start 08/25/18 at 22:00 Lactobacillus Acidophilus/ Rhamnosus (Culturelle) 1 cap BID PO ; Start 08/25/18 at 21:00 NAS MURPHY MD Aug 25, 2018 14:16
--- NOTE | 2018-08-25 15:58 | PDOCDIS ---
Discharge Instructions CONDITION [id number] Patient Condition: [id number] Stable HOME CARE INSTRUCTIONS: [id number] Diet Instructions: [id number] FOLLOW UP/APPOINTMENTS Follow-up Plan podiatry & PCP 1wk NAS MURPHY MD Aug 25, 2018 15:58
[2018-08-25] MEDS ORDERED: LACT1CAP28 PO (16:00)
[2018-08-25] MEDS ORDERED: SULF1TAB31 PO (16:00)
[2018-08-25] MEDS ORDERED: ACET325T33 PO (16:00)
[2018-08-25] MEDS ORDERED: LATANOPROST 0.005% 2.5 ML OPH BOTH EYES SCH (21:00)
[2018-08-25] MEDS ORDERED: LACTOBACILLUS RHAMNOSUS CAP PO SCH (21:00)
[2018-08-25] MEDS ORDERED: VANCOMYCIN 1 GM 250 ML IVPB SCH (22:00)
== END 2018-08-25 16:45 | disposition home or self-care (01) | DRG 603 ==
LOC: E/R 23:56 → 2NE 08-25 04:00
PROVIDERS: ADMIT Family Medicine; ATTEND Internal Medicine
DX: L03.116 Cellulitis of left lower limb (principal); H40.9 Unspecified glaucoma; I10 Essential (primary) hypertension; F17.200 Nicotine dependence, unspecified, uncomplicated; Z90.49 Acquired absence of other specified parts of digestive tract; Z88.0 Allergy status to penicillin; Z79.82 Long term (current) use of aspirin
CPT/HCPCS: 36415; 80053; 81001; 83690; 85025; 85610; 85651; 85730; 86140; 96374; 96375; J1200; J2270; J2405; J3370; J7040; J7050

== ENCOUNTER 2018-09-23 02:05 | Emergency (ER) | payer MEDICARE, OTHER ==
[~2018-09-23] VITALS: Wt 76.4 kg
[~2018-09-23 02:05] MED LIST changes: +ACET325T33 PO; +LACT1CAP28 PO; +SULF1TAB31 PO
[2018-09-23] MEDS ORDERED: hydrALAzine 20 MG INJ IV ONE (02:26)
[2018-09-23] MEDS ORDERED: hydrALAzine 20 MG INJ ONE (02:33)
[2018-09-23] MEDS ORDERED: morphine 4 MG/ML VIAL ONE (03:19)
[2018-09-23] MEDS ORDERED: ONDANSETRON 4 MG INJ ONE (03:19)
[2018-09-23] MEDS ORDERED: LORAZEPAM 0.5 MG TAB ONE (03:45)
[2018-09-23] MEDS ORDERED: LORAZEPAM 0.5 MG TAB PO ONE (04:00)
[2018-09-23] MEDS ORDERED: LORA-441 PO (04:32)
[2018-09-23 04:58] VITALS: BP 131/61; PULSE 90; RESP 20
--- NOTE | 2018-10-28 01:38 | ERD ---
ER Documentation Chief Complaint Chief Complaint bib self, cc: htn and anxiety HPI This is a 66 by myself complains of elevated blood pressure secondary to anxiety. She denies any fevers chills nausea vomiting. She denies any chest pain. She denies any headache. Denies any focal neurologic complaints. ROS All systems reviewed and are negative except as per history of present illness. Medications Home Meds Active Scripts Lorazepam* (Ativan*) 0.5 Mg Tablet, 0.5 MG PO Q8H PRN for ANXIETY, #10 TAB Prov:ERIC SANTANAEL Brian 09/23/18 Sulfamethoxazole/Trimethoprim* (Bactrim Ds* Tablet) 1 Each Tablet, 1 TAB PO BID for 10 Days, TAB Prov:NAS MURPHY MD 08/25/18 Lactobacillus Rhamnosus GG (Culturelle) 1 Each Capsule, 1 CAP PO BID for 14 Days, #30 CAP otc Prov:NAS MURPHY MD 08/25/18 Acetaminophen* (Tylenol*) 325 Mg Tablet, 650 MG PO Q6H PRN for .PAIN 1-3 OR TEMP for 10 Days, TAB Prov:NAS MURPHY MD 08/25/18 Polyethylene Glycol* (Miralax*) 17 Gm Powd.pack, 17 GM PO DAILY for CONSTIPATION, #12 PACKET Prov:EDEN FRANCO DO 03/08/17 Naproxen* (Naproxen*) 375 Mg Tablet, 375 MG PO BID PRN for PAIN, #20 TAB Prov:EDEN FRANCO DO 03/08/17 Reported Medications Multivit/Iron/FA/K/Herb No.244 (Alive Women[employer] Energy Mv Tablet) 1 Each Tablet, 1 EACH PO DAILY, TAB 02/15/16 Latanoprost (Latanoprost) 2.5 Ml Drops, 1 DROP BOTH EYES QHS, #1 BOTTLE 02/15/16 Calcium Carbonate/Vitamin D3 (Calcium 600 + Vit D 400 Tablet) 1 Each Tablet, 2 EACH PO BID, TAB 02/15/16 Aspirin Delayed Release (Aspirin Delayed Release) 81 Mg Tablet.dr, 81 MG PO DAILY 07/17/13 Hydrochlorothiazide (Hydrochlorothiazide) 25 Mg Tablet, 25 MG PO DAILY 07/17/13 Atenolol* (Atenolol*) 25 Mg Tablet, 25 MG PO DAILY 07/17/13 Allergies Allergies: Coded Allergies: Penicillins (Verified Allergy, Intermediate, total body redness/hives, 08/25/18) unsure which med caused reaction; given PCN, amocicillin, hydrocodone, Keflex at same time for dental procedure; reaction 1 day later cephalexin (Verified Allergy, Unknown, 08/25/18) unsure which med caused reaction; given PCN, amocicillin, hydrocodone, Keflex at same time for dental procedure; reaction 1 day later hydrocodone (Verified Allergy, Unknown, 08/25/18) unsure which med caused reaction; given PCN, amocicillin, hydrocodone, Keflex at same time for dental procedure; reaction 1 day later PMhx/Soc History of Surgery: Yes Anesthesia Reaction: No Hx Neurological Disorder: No Hx Respiratory Disorders: No Hx Cardiac Disorders: No Hx Psychiatric Problems: No Hx Miscellaneous Medical Probl: No Hx Alcohol Use: Yes Hx Substance Use: No Hx Tobacco Use: No Smoking Status: Never smoker Physical Exam Physical Exam Const: No acute distress Head: Atraumatic Eyes: Normal Conjunctiva ENT: Normal External Ears, Nose and Mouth. Neck: Full range of motion. No meningismus. Resp: Clear to auscultation bilaterally Cardio: Regular rate and rhythm, no murmurs Abd: Soft, non tender, non distended. Normal bowel sounds Skin: No petechiae or rashes Back: No midline or flank tenderness Ext: No cyanosis, or edema Neur: Awake and alert Psych: Normal Mood and Affect Results 24 hrs Laboratory Tests Test 09/23/18 02:32 White Blood Count 8.4 10^3/ul Red Blood Count 4.01 10^6/ul Hemoglobin 11.5 g/dl Hematocrit 35.1 % Mean Corpuscular Volume 87.5 fl Mean Corpuscular Hemoglobin 28.7 pg Mean Corpuscular Hemoglobin Concent 32.8 g/dl Red Cell Distribution Width 14.5 % Platelet Count 277 10^3/UL Mean Platelet Volume 10.4 fl Immature Granulocytes % 0.200 % Neutrophils % 50.8 % Lymphocytes % 37.9 % Monocytes % 8.8 % Eosinophils % 1.9 % Basophils % 0.4 % Nucleated Red Blood Cells % 0.0 /100WBC Immature Granulocytes # 0.020 10^3/ul Neutrophils # 4.3 10^3/ul Lymphocytes # 3.2 10^3/ul Monocytes # 0.7 10^3/ul Eosinophils # 0.2 10^3/ul Basophils # 0.0 10^3/ul Nucleated Red Blood Cells # 0.0 10^3/ul Sodium Level 141 mmol/L Potassium Level 3.6 mmol/L Chloride Level 104 mmol/L Carbon Dioxide Level 27 mmol/L Anion Gap 10 Blood Urea Nitrogen 17 mg/dl Creatinine 0.61 mg/dl Est Glomerular Filtrat Rate mL/min > 60 mL/min Glucose Level 118 mg/dl Calcium Level 9.4 mg/dl Total Bilirubin 0.4 mg/dl Direct Bilirubin 0.00 mg/dl Indirect Bilirubin 0.4 mg/dl Aspartate Amino Transf (AST/SGOT) 96 IU/L Alanine Aminotransferase (ALT/SGPT) 28 IU/L Alkaline Phosphatase 103 IU/L Troponin I < 0.012 ng/ml Total Protein 7.9 g/dl Albumin 4.2 g/dl Globulin 3.70 g/dl Albumin/Globulin Ratio 1.13 Current Medications Medications Dose Sig/[place] Start Time Status Last (Trade) Ordered Route PRN Stop Time Admin Dose Reason Admin Lorazepam 0.5 mg ONCE ONCE 09/23/18 DC 09/23/18 (Ativan) PO 04:00 03:59 09/23/18 04:01 Hydralazine 20 mg ONCE ONCE 09/23/18 DC 09/23/18 HCl IV 02:26 03:20 (Apresoline) 09/23/18 04:39 Lorazepam 0.5 mg STK-MED 09/23/18 DC (Ativan) ONCE .ROUTE 03:45 09/25/18 20:10 Hydralazine 20 mg STK-MED 09/23/18 DC HCl ONCE .ROUTE 02:33 (Apresoline) 09/25/18 20:10 Ondansetron 4 mg STK-MED 09/23/18 DC HCl (Zofran ONCE .ROUTE 03:19 Inj) 09/25/18 20:10 Morphine 4 mg STK-MED 09/23/18 DC Sulfate ONCE .ROUTE 03:19 (morphine) 09/25/18 20:10 Procedures/MDM EKG: Rate/Rhythm: Normal Sinus Rhythm QRS, ST, T-waves: No changes consistent w/ acute ischemia Impression: No evidence of ischemia or arrhythmia Chest X-ray 1V Interpreted by me: Soft Tissue: No acute abnor malities Bones: No acute abnormalities Mediastinum/Cardiac Silhouette/Lungs: No acute abnormalities Medical decision making: Patient's blood pressure was elevated (>120/80) but appears stable without evidence of hypertension emergency or urgency. The patient was counseled about the risks of hypertension and urged to pursue outpa tient monitoring and therapy within a week with their primary care physician. Departure Diagnosis: Primary Impression: Hypertension Hypertension type: unspecified Qualified Codes: I10 - Essential (primary) hypertension Additional Impression: Vomiting and diarrhea Condition: Stable Patient Instructions: Anxiety Reaction, Hypertension, Established, Out Of Control JIGNESH SANTANA Oct 28, 2018 01:38
== END 2018-09-23 04:59 | disposition home or self-care (01) ==
LOC: E/R 02:05
DX: I10 Essential (primary) hypertension (principal); R11.10 Vomiting, unspecified; R19.7 Diarrhea, unspecified; R51 Headache; Z79.82 Long term (current) use of aspirin
CPT/HCPCS: 70450; 71046; 80053; 84484; 85025; 96374; 99285; J0360; J2405; J2270